=== PATIENT | female | born 1935 | race Caucasian/White ===

== ENCOUNTER 2022-06-25 14:54 | Emergency (ER) | payer MEDICARE, OTHER ==
[2022-06-25] MEDS ORDERED: Gabapentin 100 MG Cap PO ONE (17:19)
[2022-06-25 17:27] LABS: CARBON DIOXIDE,CO2 26.3 mmol/L (21.0-32.0)
== END 2022-06-25 17:53 | disposition home or self-care (01) ==
LOC: MW.ED 14:54
DX: R53.1 Weakness (principal); E78.00 Pure hypercholesterolemia, unspecified; I10 Essential (primary) hypertension; Z79.82 Long term (current) use of aspirin; Z79.02 Long term (current) use of antithrombotics/antiplatelets; Z79.899 Other long term (current) drug therapy
CPT/HCPCS: 36415; 71045; 80053; 83605; 83690; 83735; 83880; 84484; 85025; 85610; 85730; 86850; 86900; 86901; 93005; 99284; A9270

== ENCOUNTER 2022-07-26 17:44 | Emergency (ER) | payer MEDICARE | END 2022-07-26 19:08 | disposition left against medical advice (07) | LOC: MW.ED 17:44 | DX: Z53.21 Procedure and treatment not carried out due to patient leaving prior to being seen by health care provider (principal) ==